=== PATIENT | male | born 1990 | race African-American/Black ===

== ENCOUNTER 2017-06-20 18:53 | Inpatient (IN) | payer SELFPAY ==
[~2017-06-20 18:53] MED LIST: ISOVUE-370 76%-LOCM 1 ML ONE
[2017-06-20 19:50] LABS: #Lymphocytes 0.8 thou/uL (1.20-3.40); #Monocytes 1.2 thou/uL (0.11-0.59); #Neutrophils 17.4 thou/uL (1.40-6.50); %Basophils 0.1 % (0.0-1.0); %Eosinophils 0.1 % (0.0-10.0); %Lymphocytes 4.2 % (21.0-51.0); %Monocytes 6.2 % (0.0-10.0); %Neutrophils 89.4 % (42.0-75.0); Hemoglobin 14.8 g/dL (14.0-18.0); Mean Corpuscular Hemoglobin 30.5 pg (27.0-31.0); Mean Corpuscular Volume 87.1 fl (80.0-94.0); Mean Platelet Volume 7.9 fL (7.4-10.4); Platelet Count 169 thou/uL (130-400); RBC Distribution Width 10.8 % (11.5-14.5); Red Blood Cell (RBC) Count 4.85 mill/uL (4.70-6.10); White Blood Cell (WBC) Count 19.5 thou/uL (4.8-10.8)
[2017-06-20 20:14] LABS: ALT (SGPT) 20 U/L (8-55); AST (SGOT) 23 U/L (5-34); Albumin 4.2 g/dL (3.5-5.0); Alkaline Phosphatase 83 U/L (40-150); Anion Gap 13 mmol/L (10-20); BUN (Urea Nitrogen) 8 mg/dL (8.9-20.6); Bilirubin, Total 1.2 mg/dL (0.2-1.2); Calc. Creatinine Clearance 0 mL/min (70-130); Calcium 8.9 mg/dL (7.8-10.44); Carbon Dioxide 22 mmol/L (22-29); Chloride 103 mmol/L (98-107); Estimated GFR-MDRD 60; Globulin 3.5 g/dL (2.4-3.5); Glucose 117 mg/dL (70-105); Potassium 3.5 mmol/L (3.5-5.1); Protein, Total 7.7 g/dL (6.0-8.3); Sodium 134 mmol/L (136-145)
[2017-06-20 21:07] LABS: Magnesium 1.5 mg/dL (1.6-2.6)
[2017-06-20 21:08] LABS: CKMB 0.3 ng/mL (0-6.6); Troponin I Less than 0.010 ng/mL (< 0.028)
--- NOTE | 2017-06-20 21:14 | RAD ---
PORTABLE CHEST ONE VIEW: 06/20/17 at 8:59 p.m. HISTORY: Fever, headache, dizziness, chills. FINDINGS: The heart size is normal. the lungs are expanded without focal areas of consolidation, pneumothorax o r pleural effusions. IMPRESSION: No radiographic evidence of acute cardiopulmonary process. POS: [facility]
[2017-06-20] MEDS ORDERED: Acetaminophen 500 MG TAB ONE (22:05)
--- NOTE | 2017-06-20 23:52 | CT ---
CT BRAIN WITHOUT CONTRAST: 06/20/17 HISTORY: Headache. FINDINGS: No evidence of infarct, hemorrhage or midline shift or abnormal extra-axial fluid collections seen. The bony calvarium is intact. The visualized paranasal sinuses and mastoid air cells are well aerated . IMPRESSION: No CT evidence of acute intracranial process. POS: [facility]
--- NOTE | 2017-06-20 23:58 | CT ---
CT ABDOMEN AND PELVIS WITH IV CONTRAST: 06/20/17 HISTORY: Vomiting and diarrhea. Dizziness and headache. FINDINGS: There are mild dependent changes in the lung bases. No free air or free fluid is seen in the abdomen or pelvis. The liver, spleen, pancreas, adrenal glands and kidneys are normal. No calcified gallstone s is seen. There are prominent mesenteric lymph nodes, particularly in the ileocecal chain. There is fluid in th e small and large bowel loops. A normal appearing appendix is present. A circumaortic left renal vein is present. IMPRESSION: Findings are suggestive of enterocolitis. POS: [facility]
--- NOTE | 2017-06-21 00:02 | CT ---
CT PULMONARY ANGIOGRAM WITH IV CONTRAST AND 3D POSTPROCESSING 06/20/17 HISTORY: Chest pain. FINDINGS: There is good contrast opacification of the pulmonary artery vasculature without filling defects to s uggest pulmonary embolism. The thoracic aorta is well opacified without aneurysmal dissection. No ple ural or pericardial effusions are seen. There are mild dependent changes in the posterior lung bases. No pneumothoraces, lung masses or lobar consolidation are seen. No acute osseous abnormalities are i dentified. IMPRESSION: No CT evidence of pulmonary embolism. POS: [facility]
[2017-06-21 00:38] LABS: Bilirubin Negative (Negative); Blood, Urine Negative (Negative); Clarity CLEAR (Clear); Glucose, Urine (Dipstick) Negative (Negative); Leukocyte Negative (Negative); Nitrite Negative (Negative); Protein, Urine (Dipstick) Negative (Neg-Trace); Specific Gravity, Urine 1.044 (1.002-1.036); Urobilinogen 0.2 mg/dL (0.2-1.0)
--- NOTE | 2017-06-21 00:52 | PDOC.FPRHP ---
- History of Present Illness Chief Complaint: Weakness History of Present Illness: 26 yo male presents for evaluation of one day history of weakness. He states he woke up yesterday at 0100 and felt dizzy. He then vomited and began having diarrhea. He states that he vomited twice and it was mostly water. He states that he has had greater than 10 watery BMs today. He states that he wasn't exactly weak, but he was dizzy. He states that he works at a [employer] and has been there for approximately one month. He has not been around any other sick contacts. He states this has never happened to him before. He also states that he has had fevers and chills today. His nausea and vomiting has resolved, but he still doesn't feel back to normal. He has had multiple water BMs since being at the hospital. No other complaints today. ED Course: Vancomycin Rocephin 3L NS bolus Acetaminophen - Allergies/Adverse Reactions Allergies Allergy/AdvReac Type Severity Reaction Status Date / Time No Known Drug Allergies Allergy Verified 06/21/17 00:51 - History PMHx: None PSHx: Testicular surgery FHx: Non-contributory Social: No tobacco, alcohol, or drug use. - Review of Systems General: reports: weight/appetite/sleep changes (decreased appetite). denies: fever/chills ENT: denies: nasal congestion Respiratory: denies: cough, congestion, shortness of breath Cardiovascular: denies: chest pain, palpitation Gastrointestinal: reports: nausea, diarrhea, abdominal pain. denies: vomiting Genitourinary: denies: incontinence, dysuria Skin: denies: rashes, lesions Musculoskeletal: denies: pain, tenderness Neurological: reports: weakness. denies: numbness, syncope Psychological: denies: anxiety, depression - Vital signs BP: [95/48] HR: [113] RR: [16] Tmax: [99.5] Pox: [95]% on [Rm Air] Wt: [88 kg ] - Physical Exam HEENT: normocephalic and atraumatic, PERRLA, grossly normal vision, grossly normal hearing, normal nasal mucosa, MMM Neck: supple, trachea midline Chest: no-tender to palpation Heart: RRR, normal S1/S2, no murmurs/rubs/gallops, pulses present, no edema Lungs: CTAB, no wheezing Abdomen: soft, non-tender, no masses/distention -Abdomen: Hyperactive bowel sounds Musculoskeletal: normal structure, normal tone, ROM grossly normal Neurological: no focal deficit, CN II-XII intact, normal sensation, DTRs 2+ Skin: no rash/lesions, good turgor, capillary refill <2 seconds Heme/Lymphatic: no unusual bruising or bleeding Psychiatric: normal mood and affect, good judgment and insight, intact recent and remote memory FMR H&P: Results - Labs Result Diagrams: 06/20/17 19:45 06/20/17 19:45 Lab results: WBC 19.5 thou/uL (4.8-10.8) H 06/20/17 19:45 Hgb 14.8 g/dL (14.0-18.0) 06/20/17 19:45 Hct 42.2 % (42.0-52.0) 06/20/17 19:45 MCV 87.1 fl (80.0-94.0) 06/20/17 19:45 Plt Count 169 thou/uL (130-400) 06/20/17 19:45 Neutrophils % 89.4 % (42.0-75.0) H 06/20/17 19:45 Sodium 134 mmol/L (136-145) L 06/20/17 19:45 Potassium 3.5 mmol/L (3.5-5.1) 06/20/17 19:45 Chloride 103 mmol/L (98-107) 06/20/17 19:45 Carbon Dioxide 22 mmol/L (22-29) 06/20/17 19:45 BUN 8 mg/dL (8.9-20.6) L 06/20/17 19:45 Creatinine 1.44 mg/dL (0.6-1.3) H 06/20/17 19:45 Glucose 117 mg/dL (70-105) H 06/20/17 19:45 Lactic Acid 1.6 mmol/L (0.5-2.2) 06/20/17 19:40 Calcium 8.9 mg/dL (7.8-10.44) 06/20/17 19:45 Total Bilirubin 1.2 mg/dL (0.2-1.2) 06/20/17 19:45 AST 23 U/L (5-34) 06/20/17 19:45 ALT 20 U/L (8-55) 06/20/17 19:45 Alkaline Phosphatase 83 U/L (40-150) 06/20/17 19:45 CK-MB (CK-2) 0.3 ng/mL (0-6.6) 06/20/17 19:40 Serum Total Protein 7.7 g/dL (6.0-8.3) 06/20/17 19:45 Albumin 4.2 g/dL (3.5-5.0) 06/20/17 19:45 Lipase 27 U/L (8-78) 06/20/17 19:40 - EKG Interpretation EK lead EKG shows, sinus tachycardia, Rate (beats per minute): 105, QRS duration 82ms. FMR H&P: A/P - Problem List (1) Sepsis Current Visit: Yes Status: Acute Code(s): A41.9 - SEPSIS, UNSPECIFIED ORGANISM (2) Enterocolitis Current Visit: Yes Status: Acute Code(s): K52.9 - NONINFECTIVE GASTROENTERITIS AND COLITIS, UNSPECIFIED (3) SYED (acute kidney injury) Current Visit: Yes Status: Acute Code(s): N17.9 - ACUTE KIDNEY FAILURE, UNSPECIFIED (4) Moderate dehydration Current Visit: Yes Status: Acute Code(s): E86.0 - DEHYDRATION - Plan 1. Sepsis - Likely secondary to GI infection - IVF - Will transition to Cipro and Flagyl for antibiotic coverage 2. Enterocolitis - Will get stool studies - Continue Antibiotics 3. SYED - Likely secondary to above - IVF - Monitor with BMP 4. Moderate Dehydration - IVF CODE STATUS: FULL CODE Disposition: Stable, will admit to Telemetry FMR H&P: Upper Level - Plan Date/Time: 06/21/17 0050 Sylvie Resendiz, PGY3, have evaluated this patient and agree with findings/plan as outlined by internal medicine doctor resident. Pertinent changes/additions are listed here. This is a 26yo AAM w/ no significant PMH, presents to the ED w/ 2 days hx of non -bloody, watery diarrhea over 10 episodes today, and non-bloody, watery vomit x2 episodes today, fevers, chills. He was found to have enterocolitis on CT abdomen and therefore given Vanc, Rocephin and 2L NS in the ED and admitted to the floor. PE: Gen: AOx4, in no acute distress, afebrile HEENT: Dry mucous membranes, TM normal, no cervical adenopathy CV: Regular Tachycardic Resp: CTA bilaterally Ext: No edema, +2 pedal pulses Skin: No rash A/P: 1) Moderate dehydration - s/p 2L NS. Continue fluids until tolerating PO. 2) Enterocolitis - f/u with stool studies. Continue antibiotics. Add probiotics. 3) Leukocytosis 2/2 #2. Repeat CBC in am 4) Hypomagensemia - f/u with Mag in am, as likely won't tolerate replacement currently due to diarrhea. 5) SYED vs CKD - likely 2/2 dehydration F/u with BMP in am. 6) Elevated D-dimer - CTA chest negative for pulmonary embolism. Attending Addendum - Attending Addendum Date/Time: 06/21/17 0703 I personally evaluated the patient and discussed the management with Dr. Nunes I agree with the History, Examination, Assessment and Plan documented above with any addition or exceptions noted below. 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 Agrre with symptomatic care aggressive rehydration and flagy,cipro pending further evaluation as appears infectious verse IBS at this time.
[2017-06-21] MEDS ORDERED: Fentanyl 100 MCG/2 ML VIAL SLOW IVP PRN (03:53)
[2017-06-21] MEDS ORDERED: Acetaminophen 325 MG TAB PO PRN ×2 (03:54→04:51)
[2017-06-21] MEDS ORDERED: Ondansetron ODT 4 MG TAB SL PRN (03:54)
[2017-06-21] MEDS ORDERED: Ondansetron HCl/PF 4 MG/2 ML Vial IVP PRN (03:54)
[2017-06-21] MEDS ORDERED: Sodium Chloride 0.45% 1,000 ML IV SCH (04:00)
[2017-06-21] MEDS ORDERED: Ondansetron ODT 4 MG TAB PO PRN (04:51)
[2017-06-21 05:02] VITALS: BMI 29.3
[2017-06-21] MEDS: Sodium Chloride 0.9% 1,000 ML IV SCH ×3 (05:34→18:12)
[2017-06-21 07:47] LABS: Anion Gap 11 mmol/L (10-20); BUN (Urea Nitrogen) 9 mg/dL (8.9-20.6); Calc. Creatinine Clearance 120 mL/min (70-130); Calcium 8.1 mg/dL (7.8-10.44); Carbon Dioxide 21 mmol/L (22-29); Chloride 109 mmol/L (98-107); Estimated GFR-MDRD 89; Glucose 132 mg/dL (70-105); Magnesium 1.4 mg/dL (1.6-2.6); Potassium 3.4 mmol/L (3.5-5.1); Sodium 138 mmol/L (136-145)
[2017-06-21 07:53] LABS: Phosphorus 1.8 mg/dL (2.3-4.7)
[2017-06-21 08:31] LABS: #Lymphocytes 1.1 thou/uL (1.20-3.40); %Basophils 0.3 % (0.0-1.0); %Eosinophils 0.2 % (0.0-10.0); %Lymphocytes 6.7 % (21.0-51.0); %Monocytes 6.1 % (0.0-10.0); %Neutrophils 86.8 % (42.0-75.0); Hemoglobin 13.8 g/dL (14.0-18.0); Mean Corpuscular HGB CONC 34.2 g/dL (32.0-36.0); Mean Corpuscular Volume 87.8 fl (80.0-94.0); Mean Platelet Volume 8.2 fL (7.4-10.4); Platelet Count 154 thou/uL (130-400); RBC Distribution Width 10.8 % (11.5-14.5); RBC Morphology Normal; Red Blood Cell (RBC) Count 4.59 mill/uL (4.70-6.10); White Blood Cell (WBC) Count 16.2 thou/uL (4.8-10.8)
[2017-06-21] MEDS ORDERED: Potassium Phosphate 9 MMOL in Sodium Chloride 0.9% 100 ML IVPB SCH (09:00)
[2017-06-21] MEDS: metroNIDAZOLE 500 MG TAB PO SCH ×3 (09:37→20:07)
[2017-06-21] MEDS: Saccharomyces boulardii 250 MG CAP PO SCH (09:37)
[2017-06-21] MEDS ORDERED: Sodium Chloride 0.9% 1,000 ML IV SCH (11:00)
[2017-06-21] MEDS: Pepto Bismol Chew TAB PO PRN ×3 (11:49→20:13)
[2017-06-21] MEDS ORDERED: Ketorolac Tromethamine 30 MG/ML VIAL IVP SCH (18:15)
[2017-06-22] MEDS: Sodium Chloride 0.9% 1,000 ML IV SCH ×2 (00:15→01:20)
[2017-06-22 04:58] LABS: #Eosinphils 0.1 thou/uL (0.0-0.7); #Lymphocytes 1.7 thou/uL (1.20-3.40); #Neutrophils 6.2 thou/uL (1.40-6.50); %Basophils 0.3 % (0.0-1.0); %Eosinophils 0.8 % (0.0-10.0); %Lymphocytes 19.1 % (21.0-51.0); %Monocytes 11.3 % (0.0-10.0); %Neutrophils 68.5 % (42.0-75.0); Hemoglobin 12.6 g/dL (14.0-18.0); Mean Corpuscular HGB CONC 33.4 g/dL (32.0-36.0); Mean Corpuscular Hemoglobin 29.4 pg (27.0-31.0); Mean Corpuscular Volume 87.9 fl (80.0-94.0); Platelet Count 140 thou/uL (130-400); RBC Distribution Width 10.9 % (11.5-14.5); Red Blood Cell (RBC) Count 4.28 mill/uL (4.70-6.10); White Blood Cell (WBC) Count 9.1 thou/uL (4.8-10.8)
[2017-06-22] MEDS ORDERED: Sodium Chloride 0.9% 1,000 ML IV SCH ×2 (05:15)
[2017-06-22 06:21] LABS: Anion Gap 11 mmol/L (10-20); BUN (Urea Nitrogen) 8 mg/dL (8.9-20.6); Calc. Creatinine Clearance 131 mL/min (70-130); Calcium 8.1 mg/dL (7.8-10.44); Carbon Dioxide 23 mmol/L (22-29); Chloride 111 mmol/L (98-107); Estimated GFR-MDRD Greater than 90; Glucose 101 mg/dL (70-105); Phosphorus 2.8 mg/dL (2.3-4.7); Potassium 3.5 mmol/L (3.5-5.1); Sodium 141 mmol/L (136-145)
--- NOTE | 2017-06-22 06:45 | PDOC.FM ---
- Subjective Subjective: Pt was tachycardic with low urine output yesterday afternoon and overnight. States he has urinated twice this am. Nurse reported 500 ml of urine that was light yellow to clear. He received 1L of fluids bolused last night. This morning he denies complaints. States he feels significantly better. Tolerating normal diet. No diarrhea since yesterday afternoon. - Objective MAR Reviewed: Yes Vital Signs & Weight: Vital Signs (12 hours) Temp Pulse Resp BP Pulse Ox 06/21/17 23:50 98.3 F 92 16 115/76 98 06/21/17 19:00 99.1 F 101 H 16 132/69 93 L I&O: 06/20/17 06/21/17 06/22/17 06:59 06:59 06:59 Intake Total 2400 Output Total 275 Balance 2125 Result Diagrams: 06/22/17 04:28 06/22/17 04:28 <Kay Sheth - Last Filed: 06/22/17 12:05> - Objective Vital Signs & Weight: Vital Signs (12 hours) Temp Pulse Resp BP Pulse Ox 06/22/17 11:44 98.0 F 91 20 140/100 H 98 06/22/17 08:00 98.6 F 90 20 140/69 97 06/22/17 04:00 98.3 F 87 16 121/70 96 I&O: 06/21/17 06/22/17 06/23/17 06:59 06:59 06:59 Intake Total 5190 Output Total 275 Balance 4915 Result Diagrams: 06/22/17 04:28 06/22/17 04:28 <Dorothea Chaudhary - Last Filed: 06/22/17 15:24> Phys Exam - Physical Examination Constitutional: NAD HEENT: PERRLA, moist MMs Respiratory: no wheezing, no rales no increased work of breathing Cardiovascular: RRR Musculoskeletal: no edema Neurological: non-focal Psychiatric: normal affect, A&O x 3 Skin: no rash <Kay Sheth - Last Filed: 06/22/17 12:05> Dx/Plan (1) Low TSH level Code(s): R94.6 - ABNORMAL RESULTS OF THYROID FUNCTION STUDIES Status: Acute (2) Low thyroxine (T4) level Code(s): R94.6 - ABNORMAL RESULTS OF THYROID FUNCTION STUDIES Status: Acute (3) SYED (acute kidney injury) Code(s): N17.9 - ACUTE KIDNEY FAILURE, UNSPECIFIED Status: Acute (4) Enterocolitis Code(s): K52.9 - NONINFECTIVE GASTROENTERITIS AND COLITIS, UNSPECIFIED Status : Acute (5) Moderate dehydration Code(s): E86.0 - DEHYDRATION Status: Acute (6) Sepsis Code(s): A41.9 - SEPSIS, UNSPECIFIED ORGANISM Status: Acute (7) Low serum triiodothyronine (T3) Code(s): R79.89 - OTHER SPECIFIED ABNORMAL FINDINGS OF BLOOD CHEMISTRY Status : Acute - Plan Plan: 26 yo male with no pmhx presents with watery diarrhea and vomiting, admitted for sepsis 2/2 enterocolitis. 1. Sepsis-2/2 enterocolitis -Low urine output, bolused 1L fluids this am; ordered a CK which was slightly elevated. -Pt has had >500ml of urine output this morning, yellow to clear colored. - Will continue Cipro and Flagyl for antibiotic coverage for a total of 7 days. 2. Enterocolitis - Campy, E. coli, c. diff negative - stool culture pending - Continue Antibiotics for a total of 7 days. 3. Low TSH, low normal Free T4, Low total T4, Low T3 -Recommend follow-up in outpatient setting with a thyroid US and repeat labs. 4. SYED resolved. 5. Moderate Dehydration - resolved. okay to dc IVF. okay to discharge this afternoon with close follow-up with PCP. <Kay Sheth - Last Filed: 06/22/17 12:05> Attending Addendum - Attending Addendum Date/Time: 06/22/17 1523 I personally evaluated the patient and discussed the management with Dr. Sheth. I agree with the History, Examination, Assessment and Plan documented above with any addition or exceptions noted below. The patient's diarrhea has improved and he is feeling better. His urine output has improved. Will d/c home but he will need outpt follow-up of thyroid labs. <Dorothea Chaudhary - Last Filed: 06/22/17 15:24>
[2017-06-22] MEDS: Saccharomyces boulardii 250 MG CAP PO SCH (08:46)
[2017-06-22] MEDS: metroNIDAZOLE 500 MG TAB PO SCH (08:46)
[2017-06-22 11:44] VITALS: BP 140/100; TEMP 98
== END 2017-06-22 13:37 | disposition home or self-care (01) | DRG 872 ==
LOC: ERS 18:53 → 2SE 06-21 01:26
PROVIDERS: ADMIT Family Medicine; ATTEND Family Medicine
DX: A41.9 Sepsis, unspecified organism (principal); N17.9 Acute kidney failure, unspecified; A09 Infectious gastroenteritis and colitis, unspecified; E86.0 Dehydration; E83.42 Hypomagnesemia
CPT/HCPCS: 36415; 70450; 71045; 71275; 74177; 80048; 80053; 81003; 82550; 82553; 83605; 83630; 83690; 83735; 84100; 84436; 84439; 84443; 84480; 84481; 84484; 85025; 85379; 87040; 87045; 87046; 87086; 87149; 87177; 87324; 87449; 87804; 87899; 93005; J0696; J0744; J1885; J3370; J7050